=== PATIENT | female | born 1965 | race Two or more races ===

== ENCOUNTER 2021-04-05 11:39 | Emergency (ER) | payer SELFPAY ==
[~2021-04-05] VITALS: Ht 160 cm; Wt 84.4 kg
[2021-04-05 11:42] VITALS: BP 158/96
[2021-04-05] MEDS ORDERED: IBUPROFEN 800 MG TAB PO ONE (13:15)
== END 2021-04-05 13:47 | disposition home or self-care (01) ==
LOC: ER 11:39
DX: S09.8XXA Other specified injuries of head, initial encounter (principal); M79.642 Pain in left hand; M25.561 Pain in right knee; R51.9 Headache, unspecified; J45.909 Unspecified asthma, uncomplicated; Z98.890 Other specified postprocedural states; W01.0XXA Fall on same level from slipping, tripping and stumbling without subsequent striking against object, initial encounter; Y93.89 Activity, other specified; Y92.89 Other specified places as the place of occurrence of the external cause; Y99.8 Other external cause status
CPT/HCPCS: 70450; 73120; 73562